=== PATIENT | female | born 1945 | race Caucasian/White ===

== ENCOUNTER → 2021-11-14 | Outpatient (CLI) | payer MEDICARE, BC | LOC: RAD 16:30 | DX: M48.061 Spinal stenosis, lumbar region without neurogenic claudication (principal); R10.9 Unspecified abdominal pain ==

== ENCOUNTER → 2021-12-13 | Outpatient (CLI) | payer MEDICARE, BC | LOC: RAD 09:55 | DX: M79.89 Other specified soft tissue disorders (principal) ==